=== PATIENT | female | born 1985 | race African-American/Black ===

== ENCOUNTER → 2018-04-12 | Outpatient (CLI) | payer OTHER ==
--- NOTE | 2018-04-12 10:01 | RAD ---
DATE: 04/12/2018 EXAM: DIGITAL DIAGNOSTIC BILATERAL HISTORY: Bilateral breast discharge COMPARISON: Baseline study This study was interpreted with the benefit of Computerized Aided Detection (CAD). The breast parenchyma shows scattered fibroglandular densities. Breast parenchyma level B. FINDINGS: The patient presents with intermittent bilateral breast discharge, not currently occurring. Bilateral breast discharge is most commonly due to systemic factors. There is mild patchy dense fibroglandular tissue anteriorly in both breasts with considerable fatty change posteriorly. No breast mass or suspicious microcalcifications are evident. IMPRESSION: There is no mammographic evidence of malignancy in either breast. BI-RADS CATEGORY: 1 NEGATIVE RECOMMENDED FOLLOW-UP: CLIN FOLLOW UP IMAGING CLINICALLY INDICATED PQRS compliance statement: Patient information was entered into a reminder system with a target due date for the next mammogram. Mammography is a sensitive method for finding small breast cancers, but it does not detect them all and is not a substitute for careful clinical examination. A negative mammogram does not negate a clinically suspicious finding and should not result in delay in biopsying a clinically suspicious abnormality. "Our facility is accredited by the [employer] Mammography Program."
== END | disposition home or self-care (01) ==
LOC: MAMMO 09:20
PROVIDERS: ATTEND Physician Assistant Medical
DX: N64.52 Nipple discharge (principal)
CPT/HCPCS: 77066